=== PATIENT | male | born 1950 | race Caucasian/White ===

== ENCOUNTER 2019-09-18 22:22 | Inpatient (IN) | payer MEDICARE, OTHER ==
[~2019-09-18] VITALS: Ht 175.3 cm; Wt 82.6 kg
--- NOTE | 2019-09-18 22:33 | NUR ---
Majo from PET TEAM will eval patient.
[2019-09-18] MEDS ORDERED: LORA-259 PO (22:50)
[2019-09-18] MEDS ORDERED: MEMA10TA PO (22:53)
[2019-09-18] MEDS ORDERED: CEPH-570 PO (22:53)
[2019-09-18] MEDS ORDERED: RIVA1PAT3 TD (22:53)
[2019-09-18] MEDS ORDERED: DESV100T PO (22:53)
--- NOTE | 2019-09-19 00:40 | NUR ---
Pt. admitted to mhu , under care of Dr. Hogue Belongs List completed.
[2019-09-19] MEDS ORDERED: MAGNESIUM HYDROXIDE 30 ML LIQUID UDC PO PRN (01:15)
[2019-09-19] MEDS ORDERED: MAG HYDROX/AL HYDROX/SIMETH 30 ML LIQUID UDC PO PRN (01:15)
[2019-09-19] MEDS ORDERED: BLOOD SUGAR DIAGNOSTIC 1 EACH STRIP VI ONE (01:15)
[2019-09-19] MEDS: LORAZEPAM 1 MG TABLET PO PRN ×3 (04:00→20:54)
[2019-09-19 06:23] VITALS: BP 116/98
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
[2019-09-19 07:30] VITALS: BP 122/85
[2019-09-19] MEDS: ACETAMINOPHEN 325 MG TABLET PO PRN (09:05)
--- NOTE | 2019-09-19 09:45 | NUR ---
Gps/Power Regulator- Refusing to take prn meds., re offered couple of time. Patient hitting lap tray , tremulous, angry affect, Prn ativan 1 mg po and tylenol 650 mg. po re -offered by other staff,administered with apple sauce, was finally able to take after lots of prompting and encouragement. Encouraged participation in his group therapy. , continue to monitor behavior.
--- NOTE | 2019-09-19 11:12 | NUR ---
Social Work Firearms Report (DOJ): Bondactor Machine Operator completed and submitted a DOJ firearms report for 5150 danger to others and grave disability certification. A copy of report has been placed in patient chart.
--- NOTE | 2019-09-19 11:13 | NUR ---
SW Family Contact: SW attempted to call patient's , Aleisha Clayton ([phone]) three times but phone number is "out of service".
--- NOTE | 2019-09-19 11:59 | NUR ---
GEOVANI Initial Discharge Plan: Patient currently resides with Aleisha Clayton ([phone]), this sheet writer unable to reach due to # being disconnected. Patient stated his living address is [address] [place] [address] however unable to verify at this time. GEOVANI will continue to work with patient, family, and MD to ensure a safe and proper discharge plan.
--- NOTE | 2019-09-19 12:00 | NUR ---
SW Family Contact: SW attempted to call patient's , Aleisha Clayton at a different number than previously attempted ([phone]) but this number goes straight to voicemail.
--- NOTE | 2019-09-19 12:23 | NUR ---
GEOVANI Note: GEOVANI called [facility] in [place] ([phone] to speak with Diane OLIVO in ER to collect collateral information. Left a voicemail for a return call. Addendum: 09/19/19 at 1452 by VICK GARCIA Diane called this principal technical writer back and stated that they only have the two numbers on file for this patient which this principal technical writer already called and are unsuccessful.
[2019-09-19 15:02] LABS: POTASSIUM 3.7 mmol/L (3.5-5.1)
[2019-09-19 16:25] VITALS: BP 142/81
[2019-09-19] MEDS: OLANZAPINE 2.5 MG TABLET PO SCH (17:13)
[2019-09-19 20:43] VITALS: BP 148/91
[2019-09-19] MEDS: CEphaleXIN 500 MG CAPSULE PO SCH (20:54)
[2019-09-20] MEDS: TEMAZEPAM 7.5 MG CAPSULE PO PRN (00:48)
[2019-09-20 07:30] VITALS: BP 122/77
[2019-09-20 07:30] LABS: BILIRUBIN,TOTAL 0.7 mg/dL (0.2-1.0); POTASSIUM 3.6 mmol/L (3.5-5.1); TOTAL PROTEIN, SERUM 6.6 g/dL (6.4-8.2)
[2019-09-20] MEDS: CEphaleXIN 500 MG CAPSULE PO SCH ×2 (08:41→20:53)
[2019-09-20] MEDS: ESCITALOPRAM OXALATE 10 MG TABLET PO SCH (08:41)
[2019-09-20] MEDS: OLANZAPINE 2.5 MG TABLET PO SCH ×2 (08:41→17:30)
--- NOTE | 2019-09-20 09:30 | NUR ---
GEOVANI Discharge Planning: GEOVANI faxed patient's referral packet for review and possible placement to the following facilities: [facility] (fax: [phone]) attention to [facility] ([phone]) attention Shaun Addendum: 09/20/19 at 1228 by VICK GARCIA [facility] is unable to accept patient due to not having a memory care unit.
--- NOTE | 2019-09-20 12:28 | NUR ---
SW Discharge Planning: SW faxed patient's referral packet for review and possible placement to [facility] ([phone]) attention to [facility].
[2019-09-20] MEDS: LORAZEPAM 1 MG TABLET PO PRN (14:35)
[2019-09-20] MEDS: RIVASTIGMINE 9.5 MG/ 24 HR 9.5 MG PATCH TD SCH (14:41)
--- NOTE | 2019-09-20 14:41 | NUR ---
GEOVANI Individual Therapy Note: SW met with patient for brief individual counseling to address patient's aggressive and combative behaviors. Patient presents disorganized and disoriented. SW attempted to orient patient to his presenting problems, however patient is unable to engage in a meaningful conversation due to being confused and has impaired thought process.
--- NOTE | 2019-09-20 15:00 | NUR ---
Gps/Tech Intern- Patient constantly wandering around constant redirections, goes to females' room.Constant redirections provided. Walking around, pacing, unable to find his room. Patient requesting to talk to his Aleisha, but unable to find number , noted disconnected, learned has a restraining order against him. Patient has tremulous hands when initiating simple tasks. Continue to monitor safety.
[2019-09-20 16:00] VITALS: BP 124/87
[2019-09-20] MEDS: MEMANTINE HCL 10 MG TABLET PO SCH (17:33)
--- NOTE | 2019-09-20 18:31 | NUR ---
Gps/Patient Transport Orderly- Patient will be moved to 3rd floor as Lance -psych. overflow. Room #327 .Unable to transfer at this time, waiting for availability of sitter.
[2019-09-20 20:00] VITALS: BP 133/85
--- NOTE | 2019-09-20 21:13 | NUR ---
PT ATB CEPHALEXIN WAS WASTED DUE TO PT SPIT IT OUT.
[2019-09-21] MEDS: TEMAZEPAM 7.5 MG CAPSULE PO PRN (00:07)
--- NOTE | 2019-09-21 04:53 | NUR ---
GPS/RN: PT RECEIVED PACING AND VERY CONFUSE. PT WAS NOT ABLE TO VERBALLY STATE INTENT OF SI OR HI. VERY POOR INSIGHT. EASILY IRRITATED WHEN REDIRECTED EACH TIME HE PACE INTO OTHER PT ROOM, AND NOTED TREMORS ON BOTH HANDS EVEN WHEN WALKING. PT VERBALLY ABLE TO COMMUNICATE BUT INCOHERENT. COOPERATIVE WITH ROUTINE MEDICATION. TOLERATED ATB THERAPY FOR UTI AND OFFER PLENTY WATER. PT WAS NOT ABLE TO SLEEP AND PACING, WALKING INTO OTHER PTS ROOM LOOKING FOR HIS BED, AND ATTEMPTING TO OPEN GATE TO AWOL. PRN RESTORIL GIVEN AT 0007. HAD PT SIT IN NICK CHAIR FOR MED TO TAKE EFFECT. PT AT THIS TIME ASLEEP IN HIS BED. WILL CONTINUE MONITOR AND REORIENT.
[2019-09-21 07:30] VITALS: BP 135/80
[2019-09-21] MEDS: ESCITALOPRAM OXALATE 10 MG TABLET PO SCH (08:40)
[2019-09-21] MEDS: CEphaleXIN 500 MG CAPSULE PO SCH ×2 (08:40→20:42)
[2019-09-21] MEDS: OLANZAPINE 2.5 MG TABLET PO SCH ×2 (08:40→16:15)
[2019-09-21] MEDS: MEMANTINE HCL 10 MG TABLET PO SCH ×2 (08:40→16:15)
[2019-09-21] MEDS: RIVASTIGMINE 9.5 MG/ 24 HR 9.5 MG PATCH TD SCH (08:41)
[2019-09-21] MEDS: LORAZEPAM 1 MG TABLET PO PRN ×2 (12:50→16:52)
[2019-09-21] MEDS: ACETAMINOPHEN 325 MG TABLET PO PRN (15:50)
[2019-09-21 16:04] VITALS: BP 132/89
[2019-09-21 20:01] VITALS: BP 124/88
--- NOTE | 2019-09-22 05:43 | NUR ---
GPS: Patient slept 6.30 hours. Up to restroom with assist, tremors noted in hands. Patient confused and forgetful. Patient back to bed and fell asleep right away. Bed alarm on. Monitoring patient for safety and behavior escalation. Slasher Hand will provided reorientation as needed.
[2019-09-22 07:30] VITALS: BP 111/72
[2019-09-22] MEDS: LORAZEPAM 1 MG TABLET PO PRN ×3 (07:36→16:44)
[2019-09-22] MEDS: CEphaleXIN 500 MG CAPSULE PO SCH ×2 (08:06→20:15)
[2019-09-22] MEDS: MEMANTINE HCL 10 MG TABLET PO SCH ×2 (08:06→16:44)
[2019-09-22] MEDS: ESCITALOPRAM OXALATE 10 MG TABLET PO SCH (08:06)
[2019-09-22] MEDS: OLANZAPINE 2.5 MG TABLET PO SCH ×2 (08:06→16:44)
[2019-09-22] MEDS: RIVASTIGMINE 9.5 MG/ 24 HR 9.5 MG PATCH TD SCH (08:07)
[2019-09-22] MEDS: ACETAMINOPHEN 325 MG TABLET PO PRN (12:14)
--- NOTE | 2019-09-22 15:12 | NUR ---
GPS: Nursing Notes: Thought Disorder: Patient is awake and responding to his name, impaired judgment, disoriented, confused, forgetful, unable to find his room by self, getting into other patient's room and laying down, redirected and reoriented during shift, gets easily irritable when redirected, paranoid behavior at times, believes that he is going home today, needs a lot of prompting to participate in therapeutic groups, unable to formulate a viable plan for self care, continue with treatment plan.
[2019-09-22 16:00] VITALS: BP 99/56
[2019-09-22 20:00] VITALS: BP 112/54
[2019-09-22] MEDS: TEMAZEPAM 7.5 MG CAPSULE PO PRN (21:09)
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
--- NOTE | 2019-09-23 06:09 | NUR ---
After a restless night, patient slept a total of 5 hours last night. Frequent rounds were done to ensure patient would not wonder into other patients rooms and disturb them as they slept. Night Patrol Inspector will endorse concerns to on coming shift. Monitoring patient closely at this time.
[2019-09-23 07:30] VITALS: BP 148/82
[2019-09-23] MEDS: LORAZEPAM 1 MG TABLET PO PRN ×3 (08:03→15:58)
[2019-09-23] MEDS: MEMANTINE HCL 10 MG TABLET PO SCH ×2 (08:24→16:05)
[2019-09-23] MEDS: CEphaleXIN 500 MG CAPSULE PO SCH ×2 (08:24→21:02)
[2019-09-23] MEDS: ESCITALOPRAM OXALATE 10 MG TABLET PO SCH (08:24)
[2019-09-23] MEDS: OLANZAPINE 2.5 MG TABLET PO SCH ×2 (08:24→16:05)
[2019-09-23] MEDS: RIVASTIGMINE 9.5 MG/ 24 HR 9.5 MG PATCH TD SCH (08:25)
[2019-09-23] MEDS: ACETAMINOPHEN 325 MG TABLET PO PRN (12:18)
--- NOTE | 2019-09-23 14:57 | NUR ---
GEOVANI Individual Therapy Note: SW met with patient for brief individual counseling to address patient's aggressive and combative behaviors. Patient continues to remain disorganized and forgetful. Patient has recent striking out behaviors, however when addressed patient does not remember. SW attempted to orient patient to his presenting problems, however patient is unable to engage in a meaningful conversation due to being confused and has impaired thought process.
--- NOTE | 2019-09-23 15:12 | NUR ---
GPS: Nursing Notes: Thought Disorder: Patient is awake and responding to his name, wandering around the unit aimlessly, impaired judgment, resistant with nursing care, confused, forgetful, unable to find his room by self, redirected and reoriented during shift, poor anger management, gets easily irritable when redirected, unable to formulate a viable plan for self care, episodes of getting into other pt's room and laying down, believes that he leaving today at times, constantly reoriented to reality, continue with treatment plan.
[2019-09-23 15:29] VITALS: BP 129/95
[2019-09-23 20:08] VITALS: BP 132/78
--- NOTE | 2019-09-23 23:00 | NUR ---
Patient in bed , pleasant upon approach, not in distress, no c/o pain or discomfort at this time, no episodes of striking out noted, compliant with medication and care but noted with tremulous hand.Denies AH/SI .Encouraged fluid intake.Will continue to monitor.
--- NOTE | 2019-09-24 06:40 | NUR ---
HE SLEPT FOR ABOUT 8:30HRS.
[2019-09-24] MEDS: LORAZEPAM 1 MG TABLET PO PRN ×2 (07:24→15:50)
[2019-09-24 07:30] VITALS: BP 124/82
[2019-09-24] MEDS: MEMANTINE HCL 10 MG TABLET PO SCH ×2 (08:23→17:04)
[2019-09-24] MEDS: ESCITALOPRAM OXALATE 10 MG TABLET PO SCH (08:23)
[2019-09-24] MEDS: OLANZAPINE 2.5 MG TABLET PO SCH ×2 (08:23→17:04)
[2019-09-24] MEDS: CEphaleXIN 500 MG CAPSULE PO SCH ×2 (08:23→20:30)
[2019-09-24] MEDS: RIVASTIGMINE 9.5 MG/ 24 HR 9.5 MG PATCH TD SCH (08:24)
--- NOTE | 2019-09-24 09:47 | NUR ---
spoke with Dr. Hogue, orders to have neuro consult , orders made and carried out, notified Dr. Lu, will continue f/up
[2019-09-24] MEDS: DIVALPROEX 250 MG TABLET.DR PO SCH ×2 (10:25→20:37)
[2019-09-24] MEDS: ACETAMINOPHEN 325 MG TABLET PO PRN (11:21)
[2019-09-24 16:22] VITALS: BP 137/82
[2019-09-24] MEDS: CARBIDOPA/LEVODOPA 25-100MG TABLET PO SCH (18:53)
[2019-09-24 20:25] VITALS: BP 136/86
--- NOTE | 2019-09-25 05:16 | NUR ---
Patient slept well, compliant with medications and care, tremulous hand noted,No episodes of SI , no episodes of striking out,ambulates around the hallway and able to follow commands. Will continue to monitor.
[2019-09-25 07:30] VITALS: BP 134/83
[2019-09-25] MEDS: DIVALPROEX 250 MG TABLET.DR PO SCH ×2 (08:26→20:24)
[2019-09-25] MEDS: CARBIDOPA/LEVODOPA 25-100MG TABLET PO SCH ×3 (08:26→17:00)
[2019-09-25] MEDS: MEMANTINE HCL 10 MG TABLET PO SCH ×2 (08:26→16:18)
[2019-09-25] MEDS: ESCITALOPRAM OXALATE 10 MG TABLET PO SCH (08:26)
[2019-09-25] MEDS: OLANZAPINE 2.5 MG TABLET PO SCH ×2 (08:26→16:18)
[2019-09-25] MEDS: RIVASTIGMINE 9.5 MG/ 24 HR 9.5 MG PATCH TD SCH (08:27)
[2019-09-25] MEDS: LORAZEPAM 1 MG TABLET PO PRN ×2 (09:13→16:18)
--- NOTE | 2019-09-25 14:25 | NUR ---
Social Work Family Contact: adult day care worker spoke with patient's wiife Aleisha ([phone]) is aware and agreeable with discharge plan/treatment plan.
[2019-09-25 16:05] VITALS: BP 136/85
[2019-09-25] MEDS ORDERED: CARBIDOPA/LEVODOPA 25-100MG TABLET PO SCH (17:00)
--- NOTE | 2019-09-25 18:14 | NUR ---
Patient seen back and fort to nurse station, verbalize about leaving out of town. Patient redirect and ativan PRn given with fair effect. Patient continue fall risk precaution. Patient compliant with medication. will continue monitor
[2019-09-25 20:00] VITALS: BP 132/80
--- NOTE | 2019-09-25 22:45 | NUR ---
Patient received while sitting in dinning room. Calm and cooperative. Compliant with medication. No behavioral issues. No SI. Safety measures maintained.Continue to monitor.
[2019-09-26 07:30] VITALS: BP 120/76
[2019-09-26] MEDS: DIVALPROEX 250 MG TABLET.DR PO SCH ×2 (09:04→20:08)
[2019-09-26] MEDS: CALCIUM CARBONATE 500 MG TABLET PO SCH (09:04)
[2019-09-26] MEDS: ESCITALOPRAM OXALATE 10 MG TABLET PO SCH (09:04)
[2019-09-26] MEDS: CARBIDOPA/LEVODOPA 25-100MG TABLET PO SCH ×3 (09:06→16:32)
[2019-09-26] MEDS: RIVASTIGMINE 9.5 MG/ 24 HR 9.5 MG PATCH TD SCH (09:07)
[2019-09-26] MEDS: OLANZAPINE 2.5 MG TABLET PO SCH ×2 (09:07→16:31)
[2019-09-26] MEDS: MEMANTINE HCL 10 MG TABLET PO SCH ×2 (09:07→16:32)
--- NOTE | 2019-09-26 12:57 | NUR ---
GEOVANI Individual Therapy Note: SW met with patient for brief individual counseling to address patient's aggressive and combative behaviors. Patient presents disorganized and disoriented. SW attempted to orient patient to his presenting problems, however patient is unable to engage in a meaningful conversation due to his dementia. Pt is fixated on discharge and wants to talk to his Aleisha. This technical publications writer was able to help pt talk to his and afterwards pt was calm.
[2019-09-26 13:00] VITALS: BP 120/83
--- NOTE | 2019-09-26 13:00 | NUR ---
Patient is AAO x1, no SOB or any acute distress noted. Denies pain. Vital signs stable for patient. Due mediations administered as ordered and scheduled and tolerated. Patient noted being very nervous, spends most of the time by the nurses station, asking to call family members. Patient is compliant with care and treatment. Needs reorientation and redirecting at times. Patient is independent with most care and supervised assistance. Cooperates with in group therapy and participates with activities. All other needs attended, safety measures in place and will continue with care .
[2019-09-26] MEDS: LORAZEPAM 1 MG TABLET PO PRN (17:10)
[2019-09-26] MEDS: TEMAZEPAM 7.5 MG CAPSULE PO PRN (23:23)
--- NOTE | 2019-09-26 23:25 | NUR ---
Patient received while walking in the hallway. Calm and cooperative. Compliant with medication. No behavioral issues. No SI. All due medications given as ordered and well tolerated. PRN Restoril 7.5 mg administered for insomnia. Safety measures maintained.Continue to monitor.
[2019-09-27 00:59] VITALS: BP 112/85
[2019-09-27 07:30] VITALS: BP 129/81
[2019-09-27] MEDS: OLANZAPINE 2.5 MG TABLET PO SCH ×2 (08:47→17:24)
[2019-09-27] MEDS: RIVASTIGMINE 9.5 MG/ 24 HR 9.5 MG PATCH TD SCH (08:47)
[2019-09-27] MEDS: MEMANTINE HCL 10 MG TABLET PO SCH ×2 (08:47→17:24)
[2019-09-27] MEDS: ESCITALOPRAM OXALATE 10 MG TABLET PO SCH (08:47)
[2019-09-27] MEDS: CALCIUM CARBONATE 500 MG TABLET PO SCH (08:47)
[2019-09-27] MEDS: DIVALPROEX 250 MG TABLET.DR PO SCH ×2 (08:47→20:53)
[2019-09-27] MEDS: CARBIDOPA/LEVODOPA 25-100MG TABLET PO SCH ×3 (08:48→17:24)
[2019-09-27] MEDS: LORAZEPAM 1 MG TABLET PO PRN ×2 (09:48→18:17)
[2019-09-27 16:00] VITALS: BP 113/74
[2019-09-27 20:00] VITALS: BP 118/78
--- NOTE | 2019-09-28 02:12 | NUR ---
GPS: RECEIVE PT LYING IN BED, RESPOND TO NAME AND LIGHT TOUCH. NO ACUTE DISTRESS NOTED, NO SOB. V/S WNL, AND NO C/O PAIN. PT COOPERATIVE WITH CURRENT ORDERS, NO BEHAVIOR NOTED, STILL CONFUSE. WILL CONTINUE TO MONITOR.
[2019-09-28 07:30] VITALS: BP 125/79
[2019-09-28] MEDS: MEMANTINE HCL 10 MG TABLET PO SCH ×2 (08:25→16:51)
[2019-09-28] MEDS: ESCITALOPRAM OXALATE 10 MG TABLET PO SCH (08:25)
[2019-09-28] MEDS: DIVALPROEX 250 MG TABLET.DR PO SCH ×2 (08:25→20:29)
[2019-09-28] MEDS: CARBIDOPA/LEVODOPA 25-100MG TABLET PO SCH ×3 (08:25→16:51)
[2019-09-28] MEDS: OLANZAPINE 2.5 MG TABLET PO SCH ×2 (08:25→16:51)
[2019-09-28] MEDS: CALCIUM CARBONATE 500 MG TABLET PO SCH (08:26)
[2019-09-28] MEDS: RIVASTIGMINE 9.5 MG/ 24 HR 9.5 MG PATCH TD SCH (08:28)
[2019-09-28 16:00] VITALS: BP 116/79
--- NOTE | 2019-09-28 17:51 | NUR ---
GPS/NSG Patient 1ST Observed awake in room Patient is AO x1, no SOB or any acute distress noted. Denies pain. Vital signs stable for patient. Compliant with medication. Continues to require observation as well as maximum redirection from staff in order to ensure patient safety. Patient is awol riksk and wanders into other patients rooms.
[2019-09-28 21:18] VITALS: BP 123/66
[2019-09-29] MEDS: LORAZEPAM 1 MG TABLET PO PRN ×3 (00:42→20:11)
--- NOTE | 2019-09-29 00:44 | NUR ---
GPS: Pt A/OX1, confuse with some agitation noted, no s/s of acute distress, no sob noted. Pt is ambulatory and noted pacing frequently. pt cooperative with routine medications and adhere to care as planned. Monitor per safety and reorient pt to reality with no effect. Pt noted pacing at this time again looking for his shoes, distraction and redirected not effective. Ativan PRN given and continue monitor.
--- NOTE | 2019-09-29 06:43 | NUR ---
Pt was very agitated and restless looking for his shoes. Ativan was given and was effective later the night. Pt slept 4.45mins.
[2019-09-29 07:30] VITALS: BP 129/93
[2019-09-29] MEDS: CARBIDOPA/LEVODOPA 25-100MG TABLET PO SCH ×3 (08:10→16:43)
[2019-09-29] MEDS: DIVALPROEX 250 MG TABLET.DR PO SCH ×2 (08:10→20:11)
[2019-09-29] MEDS: OLANZAPINE 2.5 MG TABLET PO SCH ×2 (08:10→16:43)
[2019-09-29] MEDS: MEMANTINE HCL 10 MG TABLET PO SCH ×2 (08:10→16:45)
[2019-09-29] MEDS: ESCITALOPRAM OXALATE 10 MG TABLET PO SCH (08:10)
[2019-09-29] MEDS: RIVASTIGMINE 9.5 MG/ 24 HR 9.5 MG PATCH TD SCH (08:11)
[2019-09-29] MEDS: CALCIUM CARBONATE 500 MG TABLET PO SCH (08:13)
--- NOTE | 2019-09-29 10:10 | NUR ---
Received patient in bed sleeping, patient is AAO x1, confused and disoriented. NO acute distress noted. Vital signs stable. Patient compliant with medication therapy and nursing care. Patient is anxious for most of the time, pacing and walking hallways and nurse's station. Patient is able to express self but reorientation needed; Pt. is redirectable. Monitored closely, safety measures in place, needs attended and will continue with care.
--- NOTE | 2019-09-29 12:00 | NUR ---
Patient noted getting agitated, pacing back and forth by the nurses station and getting worked up. Ativan 1mg 1 tab PO PRN administered and tolerated well.
[2019-09-29 16:00] VITALS: BP 114/90
--- NOTE | 2019-09-29 19:23 | NUR ---
Patient calm and sitting on Macy-chair by the nurse's station at this time. Took evening medications, compliant with care, safety needs in place and will continue with care.
[2019-09-29 21:24] VITALS: BP 149/69
[2019-09-29] MEDS: TEMAZEPAM 7.5 MG CAPSULE PO PRN (23:28)
--- NOTE | 2019-09-30 00:22 | NUR ---
GPS NOTE; Received patient sitting in a sergio chair. Patient is confused, does not know where he is or how long he has been here. When life underwriter tried to explain the situation the patient became irritated and argumentative. Later, snack was provided and patient went to his room. Soon after that , patient noted wondering around the hallway, going in and out of other patients rooms. PRN medication given and patient went to bed and fell asleep. Continuing to monitor for safety and disorientation. No distress noted at this time.
[2019-09-30 07:30] VITALS: BP 125/86
[2019-09-30] MEDS: ESCITALOPRAM OXALATE 10 MG TABLET PO SCH (08:42)
[2019-09-30] MEDS: OLANZAPINE 2.5 MG TABLET PO SCH ×2 (08:42→16:12)
[2019-09-30] MEDS: DIVALPROEX 250 MG TABLET.DR PO SCH ×2 (08:43→20:19)
[2019-09-30] MEDS: CALCIUM CARBONATE 500 MG TABLET PO SCH (08:43)
[2019-09-30] MEDS: CARBIDOPA/LEVODOPA 25-100MG TABLET PO SCH ×3 (08:43→16:12)
[2019-09-30] MEDS: RIVASTIGMINE 9.5 MG/ 24 HR 9.5 MG PATCH TD SCH (08:43)
[2019-09-30] MEDS: MEMANTINE HCL 10 MG TABLET PO SCH ×2 (08:43→16:12)
--- NOTE | 2019-09-30 10:05 | NUR ---
Social Work Family Contact: construction worker spoke with patient's wiife Aleisha ([phone]) is aware of patient's discharge. She constantly states that patient can not go back home and does not feel safe. Per Aleisha, she has a restraining order against patient. construction worker attempted to educate and explain patient's behaviors due to dementia, however, Aleisha claimed "you don't understand". Aleisha yelled at this script writer " I will not be paying for his medications and treatment" this write stated that pt has medicare and we will find him a half-way placement: [facility], which will be covered through medicare. Aleisha is aware and agreed to this placement.
[2019-09-30 16:00] VITALS: BP 126/78
[2019-09-30 20:22] VITALS: BP 143/80
[2019-09-30] MEDS: LORAZEPAM 1 MG TABLET PO PRN (20:23)
--- NOTE | 2019-10-01 05:54 | NUR ---
Received Patient walking in the hallway,calm and confused , reoriented provided, compliant with medication and cooperative with care.At 0300 a.m Patient got up from bed and tries to open the hallway door, stated he wanted to go downstairs ,redirected Patient back to his room and able to follow instruction.Safety measures maintained.Will continue to monitor.
[2019-10-01 07:30] VITALS: BP 111/84
--- NOTE | 2019-10-01 08:16 | NUR ---
Discharge Note: Patient will be discharged to [facility], [facility] [address] [place] [address]; ) via Ambulance transportation at 12PM. Food And Drink Factory Workers [facility]; ([phone]), who stated patient will be accepted back at facility today. Patients Aleisha ([phone]) is aware and agreeable. Patient is alert and oriented x1-2 and is unable to plan for self-care. Patient denies any suicidal or homicidal ideations. Patient is aware and agreeable with discharge plans. Patient will continue to follow-up with (Psychiatrist) Dr. Olmstead and Tower Observer Dr. Rashid at [facility] [address] [place] [address]; ). Patient presents with euthymic mood and congruent affect.
[2019-10-01] MEDS: ESCITALOPRAM OXALATE 10 MG TABLET PO SCH (08:22)
[2019-10-01] MEDS: OLANZAPINE 2.5 MG TABLET PO SCH (08:22)
[2019-10-01] MEDS: CARBIDOPA/LEVODOPA 25-100MG TABLET PO SCH ×2 (08:22→12:05)
[2019-10-01] MEDS: MEMANTINE HCL 10 MG TABLET PO SCH (08:22)
[2019-10-01] MEDS: RIVASTIGMINE 9.5 MG/ 24 HR 9.5 MG PATCH TD SCH (08:23)
[2019-10-01] MEDS: CALCIUM CARBONATE 500 MG TABLET PO SCH (08:23)
[2019-10-01] MEDS: DIVALPROEX 250 MG TABLET.DR PO SCH (09:30)
--- NOTE | 2019-10-01 10:52 | NUR ---
GEOVANI Individual Therapy Note: SW met with patient for brief individual counseling to address patient's aggressive and combative behaviors. Patient is unable to have a proper conversation and is confused. This check writer was unable to have a proper conversation.
[2019-10-01] MEDS: LORAZEPAM 1 MG TABLET PO PRN (11:15)
--- NOTE | 2019-10-01 13:30 | NUR ---
GPS: Nursing Notes: Discharge Notes: Patient is awake and responding to his name, cooperative with nursing care, compliant with his medications, following staff directions, denies any SI/HI, denies any AH/VH, denies any pain or discomfort, denies any SOB, A/Ox1, discharge to [facility] at [address] [place] [address] . report given to charge nurse, Tomas WINTERS supervisor prop making, patient took all his belongings, transported to facility via ambulance, his - Aleisha informed of discharge by social media assistant. Patient will continue to follow-up with (Psychiatrist) Dr. Olmstead and Pain Management Nurse Dr. Rashid at [facility] [address] [place] [address]; ).
== END 2019-10-01 13:30 | DRG 885 ==
LOC: ER 22:25 → GPS 09-19 01:01
PROVIDERS: ADMIT Psychiatry & Neurology Psychiatry
DX: F29 Unspecified psychosis not due to a substance or known physiological condition (principal); F02.81 Dementia in other diseases classified elsewhere, unspecified severity, with behavioral disturbance; N39.0 Urinary tract infection, site not specified; F32.3 Major depressive disorder, single episode, severe with psychotic features; G20 Parkinson's disease; E83.51 Hypocalcemia; Z59.0 Homelessness
CPT/HCPCS: 36415; 93005; J3490